=== PATIENT | female | born 1995 | race Caucasian/White ===

== ENCOUNTER 2022-11-27 19:43 | Emergency (ER) | payer OTHER ==
[~2022-11-27] VITALS: Ht 165.1 cm; Wt 81.6 kg
[2022-11-27 19:54] VITALS: BP_SYST 136; PULSE 95; RESP 16; TEMP 97; O2SAT 97
[2022-11-27] MEDS ORDERED: SULF1TAB48 PO (21:26)
[2022-11-27 21:40] VITALS: BP_SYST 110; PULSE 88; RESP 17; TEMP 98.3; O2SAT 98
== END 2022-11-27 21:40 | disposition home or self-care (01) ==
LOC: SED 19:43
DX: L05.01 Pilonidal cyst with abscess (principal); M53.3 Sacrococcygeal disorders, not elsewhere classified; I10 Essential (primary) hypertension; Z79.899 Other long term (current) drug therapy
CPT/HCPCS: 10080; 99284